=== PATIENT | female | born 1960 | race Caucasian/White ===

== ENCOUNTER → 2016-08-23 | Outpatient (CLI) | payer OTHER ==
[~2016-08-23] MED LIST: BENZ100C18 PO; DOXY100C PO; HYDR5SYP11 PO; LEVO1TAB33 PO; METH4PAK PO; OXYC1TAB3 PO; PRED50TA PO; ZTHM250 PO
--- NOTE | 2016-08-23 16:26 | MAMMOGRAPHY REPORT ---
BILATERAL DIGITAL SCREENING MAMMOGRAM TOMOSYNTHESIS WITH CAD: 08/23/2016 CLINICAL HISTORY: Routine screening. Patient has no complaints. TECHNIQUE: Breast tomosynthesis in addition to standard 2D mammography was performed. Current study was also evaluated with a Computer Aided Detection (CAD) system. COMPARISON: Comparison is made to exams dated: 08/21/2015 mammogram, 07/01/2012 mammogram, 1 mammogram, and 05/29/2010 mammogram - [facility]. BREAST COMPOSITION: There are scattered areas of fibroglandular density in both breasts. FINDINGS: No suspicious masses, calcifications, or areas of architectural distortion are noted in e ither breast. There has been no significant interval change compared to prior exams. IMPRESSION: ACR BI-RADS CATEGORY 1: NEGATIVE There is no mammographic evidence of malignancy. A 1 year screening mammogram is recommended. The p atient will receive written notification of the results. Approximately 10% of breast cancers are not detected with mammography. A negative mammographic repor t should not delay biopsy if a clinically suggestive mass is present. Jolanta Faith M.D. ah/:08/23/2016 14:46:55 Hand Engraver: Hortencia Urias RT(R)(M), [facility] letter sent: Normal 1/2 BI-RADS Code: ACR BI-RADS Category 1: Negative
== END | disposition home or self-care (01) ==
LOC: C.MAMM 13:19
PROVIDERS: ATTEND Family Medicine
DX: Z12.31 Encounter for screening mammogram for malignant neoplasm of breast (principal)

== ENCOUNTER → 2016-09-04 | Outpatient (CLI) | payer OTHER ==
--- NOTE | 2016-09-04 14:39 | ELECTROENCEPHALOGRAPH REPORT ---
DATE OF PROCEDURE: 09/04/2016. CLINICAL DIAGNOSIS: Hallucinations. New onset headache with some uncinate phenomena, question of temporal lobe seizures. EEG DIAGNOSIS: Essentially normal during wakefulness. DESCRIPTION OF TRACING: This EEG was done in the laboratory and is of good technical quality with few or no muscle movement artifacts. Simultaneous video analysis of patient movement and behavior was obtained. Photic stimulation was performed. Hyperventilation was not. Drowsiness and light sleep were not recorded. Under these conditions, there is evidence for normal appearing background rhythm in the alpha range of up to 9-10 Hz of maximum frequency and 40 microvolts of maximum amplitude. This is maximum posterior head regions and bilaterally symmetrical. Polymorphic mid frequency theta activity is seen over all head regions without clear focal or regional predominance. Anterior head region maximum bilaterally symmetrical low voltage fast activity in the beta range is present. Photic stimulation provokes a modest driving response without a photomyogenic or photoparoxysmal component. At no time during the waking tracing is there evidence for potentially epileptogenic activity in the form of polyspike or spike wave bursts, focal sharp waves or focal spikes. INTERPRETATION: This electroencephalogram is essentially normal during wakefulness without evidence for focal or generalized encephalopathy and without evidence for potentially epileptogenic activity. MTDD
== END | disposition home or self-care (01) ==
LOC: C.NEUR 08:13
PROVIDERS: ATTEND Nurse Practitioner Adult Health
DX: R44.2 Other hallucinations (principal); R51 Headache

== ENCOUNTER 2016-11-26 08:21 | Emergency (ER) | payer OTHER ==
[~2016-11-26] VITALS: Ht 144.8 cm; Wt 88.9 kg
[~2016-11-26 08:21] MED LIST changes: -BENZ100C18 PO; -DOXY100C PO; -HYDR5SYP11 PO; -LEVO1TAB33 PO; -METH4PAK PO; -PRED50TA PO; -ZTHM250 PO
[2016-11-26 08:22] VITALS: TEMP 36.8; Ht 144.8 cm; Wt 88.9 kg
[2016-11-26 08:35] VITALS: O2SAT 92
[2016-11-26] MEDS ORDERED: ALBUT/IPRATROP 3MG/0.5MG NEB 3 ML VIAL INH STA (08:37)
[2016-11-26] MEDS ORDERED: OPTIRAY 320 IV PRN (08:45)
[2016-11-26 08:54] LABS: BASO % 0.2 %; BASO ABS # 0.02 K/uL (0-0.2); COMPLETE YES; EOS % 8.3 %; HEMATOCRIT 39.1 % (37-47); IG% 0.3 %; LYMPH % 22.6 %; LYMPH ABS # 1.94 K/uL (1.2-3.4); MEAN CELL VOLUME 94.9 fL (80-100); MEAN CORPUSCULAR HEMOGLOBIN 30.3 pg (25-34); MEAN PLATELET VOLUME 9.3 fL (7.4-10.4); MONO % 6.6 %; PLATELET COUNT 242 K/uL (130-400); RED BLOOD COUNT 4.12 M/uL (4.2-5.4)
[2016-11-26] MEDS ORDERED: LEVO1TAB33 PO (09:05)
[2016-11-26 09:09] LABS: INR 0.9 (0.9-1.1); PARTIAL THROMBOPLASTIN RATIO 1.1; PROTHROMBIN TIME (PATIENT) 9.9 SECONDS (9.0-12.0)
[2016-11-26 09:17] LABS: ALT/SGPT 56 U/L (12-78); AST/SGOT 24 U/L (15-37); BLOOD UREA NITROGEN 11 mg/dl (7-18); BUN/CREATININE RATIO 12.7 (10-20); CARBON DIOXIDE 34 mmol/L (21-32); CHLORIDE 104 mmol/L (98-107); CREATININE 0.85 mg/dl (0.60-1.20); GLUCOSE 127 mg/dl (70-99); POTASSIUM 3.7 mmol/L (3.5-5.1); SODIUM 142 mmol/L (136-145)
[2016-11-26 09:28] LABS: ALB/GLOB RATIO 0.9 (0.9-2); ALKALINE PHOSPHATASE 152 U/L (45-117)
--- NOTE | 2016-11-26 10:01 | DIAGNOSTIC IMAGING REPORT ---
CT ANGIOGRAM OF THE CHEST CLINICAL HISTORY: Shortness of breath. Difficulty breathing. COMPARISON STUDY: Chest x-ray dated 12/08/2013 TECHNIQUE: Following the IV administration of 93 mL of Optiray-320, CT angiogram of the thorax was performed from the thoracic inlet to the lung bases utilizing the pulmonary embolus protocol. Images are reviewed in the axial, sagittal, and coronal planes. IV contrast was administered without complication. MIP imaging was performed. CT DOSE: 490.19 mGycm FINDINGS: There is a mildly enlarged subcarinal lymph node measuring 11 mm in short axis. Precarinal lymph nodes are the upper limits of normal in size. There is no pathologic axillary lymphadenopathy. There is no pathologic hilar lymphadenopathy. There was no evidence of thoracic aortic dilatation. There were no pulmonary artery filling defects to indicate acute pulmonary embolism. No pleural effusions are visualized. There are dependent atelectatic changes. There is a 13 mm peripheral airspace opacity within the lingula. There is a 5 mm solid right middle lobe perifissural nodule. There are extensive postsurgical changes present within the spine. IMPRESSION: 1. No CT evidence of acute pulmonary embolism 2. Minimally enlarged subcarinal lymph node 3. 13 mm peripheral airspace opacity within the lingula, likely atelectatic or inflammatory 4. 5 mm solid right middle lobe pulmonary nodule Please refer to below summary of Fleischner criteria recommendations for follow-up of incidental CT nodules (Pravin Dodd, Guidelines for management of small pulmonary nodules detected on CT scans: A statement from the Fleischner Society, Radiology 237: [phone].) SOLID NODULES Solitary nodule size: <6 mm * low risk patients: no follow-up needed * high risk patients: optional CT at 12 months Solitary nodule size: 6-8 mm * low risk patients: follow-up at 6-12 months, then consider further follow-up at 18-24 months * high risk patients: initial follow-up CT at 6-12 months and then at 18-24 months if no change Solitary nodule size: >8 mm * either low or high risk patients - consider follow-up CT at 3 months, and/or CT-PET, and/or biopsy Multiple nodules size: <6 mm * low risk patients: no routine follow-up * high risk patients: optional CT at 12 months Multiple nodules size: 6-8 mm * low risk patients: follow-up at 3-6 months, then consider further follow-up at 18-24 months * high risk patients: follow-up at 3-6 months, then at 18-24 months if no change Multiple nodules size: >8 mm * low risk patients: follow-up at 3-6 months, then consider further follow-up at 18-24 months * high risk patients: follow-up at 3-6 months, then at 18-24 months if no change Note: newly detected indeterminate nodule in persons 35 years of age or older. * low risk patients: minimal or absent history of smoking and/or other known risk factors * high risk patients: history of smoking or of other known risk factors (e.g. first degree relative with lung cancer, or exposure to asbestos, radon, uranium) * if a nodule up to 8 mm is partly solid or is ground glass further follow-up is required after 24 months to exclude possible slow growing adenocarcinoma (LORIN) SUBSOLID NODULES Solitary pure ground-glass nodule * nodule size <6 mm - no CT follow-up required * nodule size >=6 mm - follow-up CT at 6-12 months, then every 2 years until 5 years Solitary part-solid nodule * nodule size <6 mm - no CT follow-up required * nodule size >=6 mm - follow-up CT at 3-6 months. If unchanged, and solid component remains <6 mm, then annual follow-up for 5 years Multiple subsolid nodules * nodule size <6 mm - follow-up CT at 3-6 months, consider further follow-up at 2 and 4 years if stable * nodule size >=6 mm - follow-up CT at 3-6 months, subsequent management based on the most suspicious nodule(s) Electronically signed by: Deion Tate M.D. 11/26/2016 9:59 AM Dictated Date/Time: 11/26/2016 9:54 AM
[2016-11-26] MEDS ORDERED: METH4PAK PO (10:29)
[2016-11-26] MEDS ORDERED: HYDR5SYP11 PO (10:29)
[2016-11-26] MEDS ORDERED: DOXY100C PO (10:29)
--- NOTE | 2016-11-26 10:35 | EMERGENCY ROOM VISIT NOTE ---
History First contact with patient: 08:26 Chief Complaint: RESPIRATORY PROBLEMS Stated Complaint: DIFFICULTY BREATHING Nursing Triage Summary: Patient reports persistant cough and shortness of breath has seen pcp and been on antibiotics and steroids with minimal relief of symptoms. History of Present Illness The patient is a 56 year old female who presents to the Emergency Room with complaints of a persistent illness for over a month. The patient reports that she initially developed sinus congestion and runny nose. Within a few days, her cold had settled into her chest. With her initial PCP evaluation, she was ascribed a Z-Black and prednisone. The patient had no resolution of her symptoms. She was seen 1 week ago and prescribed Levaquin, again without any relief. The patient reports that the coughing is getting worse, and is also wheezing. She denies any prior history of lung disease, COPD or recent pneumonia. The patient reports that sometimes she can't stop coughing, and when she does catch her breath, she can hear wheezing sensation when she takes a deep breath. She has not had any fevers or chills or night sweats. She does have a history of tuberculosis. She denies history of asthma. She reports chest pressure and tightness. She denies any abdominal pain, diarrhea or urinary symptoms. Review of Systems HEENT: Denies dizziness, visual problems, hearing loss, tinnitus. Denies difficulty swallowing or oral lesions. PULMONARY: Denies cough, shortness of breath, sputum production or hemoptysis. CARDIOVASCULAR: Denies chest pain, palpitations, dyspnea on exertion, orthopnea or peripheral edema. GASTROINTESTINAL: Denies diarrhea, constipation, nausea, vomiting, or abdominal pain. GENITOURINARY: Denies dysuria, frequency, urgency or nocturia. NEUROLOGIC: Denies history of epilepsy, CVA, TIA or chronic headaches. MUSCULOSKELETAL: Denies history of joint tenderness/swelling. SKIN: Denies rashes or lesions. PSYCHIATRIC: Denies history of depression or mental illness. ENDOCRINE: Denies history of diabetes, thyroid disorders, abnormal hair growth or sexual dysfunction. Past Medical/Surgical History Surgical Problems: (1) Previous back surgery Family History FHx: cancer FHx: heart disease Hypertension Social History Smoking Status: Never Smoker Alcohol Use: none Marital Status: Housing Status: lives with family Occupation Status: unemployed Current/Historical Medications Scheduled Doxycycline Hyclate (Vibramycin), 100 MG PO BID Levofloxacin (Levaquin), 500 MG PO DAILY Methylprednisolone (Medrol Dosepak), 0 PO DAILY Scheduled PRN Hydrocodone W/ Homatropine (Hycodan 5/1.5MG 5 Ml), 5-10 ML PO Q4H PRN for Cough Allergies Coded Allergies: No Known Allergies (Unverified , 11/26/16) Physical Exam Vital Signs Date Time Temp Pulse Resp B/P Pulse Ox O2 Delivery O2 Flow Rate FiO2 11/26/16 08:58 78 11/26/16 08:35 93 Room Air 11/26/16 08:35 92 Room Air 11/26/16 08:35 93 Room Air 11/26/16 08:22 36.8 98 20 200/108 94 Room Air Medical Decision & Procedures ER Provider Diagnostic Interpretation: My interpretation of an ECG shows a sinus arrhythmia of [address] elevation or other conduction abnormalities noted. Chest CT angiography does not show any evidence for pulmonary emboli or consolidations. Radiologist report is as follows: CT ANGIOGRAM OF THE CHEST CLINICAL HISTORY: Shortness of breath. Difficulty breathing. COMPARISON STUDY: Chest x-ray dated 12/08/2013 TECHNIQUE: Following the IV administration of 93 mL of Optiray-320, CT angiogram of the thorax was performed from the thoracic inlet to the lung bases utilizing the pulmonary embolus protocol. Images are reviewed in the axial, sagittal, and coronal planes. IV contrast was administered without complication. MIP imaging was performed. CT DOSE: 490.19 mGycm FINDINGS: There is a mildly enlarged subcarinal lymph node measuring 11 mm in short axis. Precarinal lymph nodes are the upper limits of normal in size. There is no pathologic axillary lymphadenopathy. There is no pathologic hilar lymphadenopathy. There was no evidence of thoracic aortic dilatation. There were no pulmonary artery filling defects to indicate acute pulmonary embolism. No pleural effusions are visualized. There are dependent atelectatic changes. There is a 13 mm peripheral airspace opacity within the lingula. There is a 5 mm solid right middle lobe perifissural nodule. There are extensive postsurgical changes present within the spine. IMPRESSION: 1. No CT evidence of acute pulmonary embolism 2. Minimally enlarged subcarinal lymph node 3. 13 mm peripheral airspace opacity within the lingula, likely atelectatic or inflammatory 4. 5 mm solid right middle lobe pulmonary nodule Laboratory Results 11/26/16 08:42 Red Blood Count 4.12, Mean Corpuscular Volume 94.9, Mean Corpuscular Hemoglobin 30.3, Mean Corpuscular Hemoglobin Concent 32.0, Mean Platelet Volume 9.3, Neutrophils (%) (Auto) 62.0, Lymphocytes (%) (Auto) 22.6, Monocytes (%) (Auto) 6.6, Eosinophils (%) (Auto) 8.3, Basophils (%) (Auto) 0.2, Neutrophils # (Auto) 5.33, Lymphocytes # (Auto) 1.94, Monocytes # (Auto) 0.57, Eosinophils # (Auto) 0.71, Basophils # (Auto) 0.02 11/26/16 08:42 Test 11/26/16 08:37 11/26/16 08:42 11/26/16 09:10 Creatine Kinase MB Ratio (0-3.0) White Blood Count 8.60 K/uL (4.8-10.8) Red Blood Count 4.12 M/uL (4.2-5.4) Hemoglobin 12.5 g/dL (12.0-16.0) Hematocrit 39.1 % (37-47) Mean Corpuscular Volume 94.9 fL (80-100) Mean Corpuscular Hemoglobin 30.3 pg (25-34) Mean Corpuscular Hemoglobin Concent 32.0 g/dl (32-36) Platelet Count 242 K/uL (130-400) Mean Platelet Volume 9.3 fL (7.4-10.4) Neutrophils (%) (Auto) 62.0 % Lymphocytes (%) (Auto) 22.6 % Monocytes (%) (Auto) 6.6 % Eosinophils (%) (Auto) 8.3 % Basophils (%) (Auto) 0.2 % Neutrophils # (Auto) 5.33 K/uL (1.4-6.5) Lymphocytes # (Auto) 1.94 K/uL (1.2-3.4) Monocytes # (Auto) 0.57 K/uL (0.11-0.59) Eosinophils # (Auto) 0.71 K/uL (0-0.5) Basophils # (Auto) 0.02 K/uL (0-0.2) RDW Standard Deviation 49.7 fL (36.4-46.3) RDW Coefficient of Variation 14.5 % (11.5-14.5) Immature Granulocyte % (Auto) 0.3 % Immature Granulocyte # (Auto) 0.03 K/uL (0.00-0.02) Prothrombin Time 9.9 SECONDS (9.0-12.0) Prothromb Time International Ratio 0.9 (0.9-1.1) Activated Partial Thromboplast Time 29.2 SECONDS (21.0-31.0) Partial Thromboplastin Ratio 1.1 Anion Gap 4.0 mmol/L (3-11) Est Creatinine Clear Calc Drug Dose 66.9 ml/min Estimated GFR () 87.5 Estimated GFR (Non- 75.5 BUN/Creatinine Ratio 12.7 (10-20) Calcium Level 9.0 mg/dl (8.5-10.1) Total Bilirubin 0.5 mg/dl (0.2-1) Aspartate Amino Transf (AST/SGOT) 24 U/L (15-37) Alanine Aminotransferase (ALT/SGPT) 56 U/L (12-78) Alkaline Phosphatase 152 U/L (45-117) Creatine Kinase MB 2.1 ng/ml (0.5-3.6) Troponin I < 0.015 ng/ml (0-0.045) Pro-B-Type Natriuretic Peptide 46 pg/ml (0-900) Total Protein 7.5 gm/dl (6.4-8.2) Albumin 3.6 gm/dl (3.4-5.0) Globulin 3.9 gm/dl (2.5-4.0) Albumin/Globulin Ratio 0.9 (0.9-2) The above labs were reviewed. Troponin and BNP are normal. Otherwise remaining labs are grossly normal. Medications Administered Medications (Trade) Dose Ordered Sig/Mars Route Start Time Stop Time Status Last Admin Dose Admin Albuterol/ Ipratropium (Duoneb) 3 ml NOW STAT INH 11/26/16 08:37 11/26/16 08:41 DC 11/26/16 09:09 3 ML ED Course Patient history and physical exam were performed. Nurse's notes were reviewed. Vital signs were reviewed and normal. O2 saturation was 96% on room air. The patient is not tachycardic. IV access was established, and labs were drawn. She was administered a unit dose DuoNeb treatment with good relief of her cough. Review of labs showed no significant abnormalities. Her troponin and BNP are normal. ECG was normal. Chest CT angiography does not show any evidence for pulmonary emboli or consolidations. Distal findings are summarized in the radiologist report. The patient did report feeling better after receiving her DuoNeb treatment. The case was also discussed with Dr. Chinchilla, ED attending physician, who agrees with workup and plan of care. The patient will be discharged with prescriptions for doxycycline, Medrol Dosepak and Hycodan cough syrup. The patient reports that she still has plenty of albuterol at home. She was instructed to follow-up with her PCP for further reevaluation and management, likely requiring pulmonology referral. She was instructed to return to the emergency department for any progressively worsening symptoms. The patient was happy with plan of care, and voiced understanding of all discharge instructions. Medical Decision The patient presents to the emergency department with complaint of persistent respiratory symptoms. She has are been treated with azithromycin and Levaquin without any relief of symptoms. She has also been on steroids and inhalers without relief. Her workup today is not suggestive of pneumonia or pulmonary emboli. Her ECG and troponin are normal, therefore I do not suspect myocardial infarction. Remaining labs are otherwise normal without leukocytosis or fever. At this point, I do feel that the patient is stable for outpatient management. [facility] Drug Monitoring Program Search Results: patient reviewed within database, no issues identified Impression Primary Impression: Acute bronchitis Departure Information Prescriptions Hydrocodone W/ Homatropine (HYCODAN 5/1.5MG 5 ML) 1 Syp Syp 5-10 ML PO Q4H Y for Cough, #200 ML Prov: Brady Monteiro PA 11/26/16 Methylprednisolone (MEDROL DOSEPAK) 4 Mg Black 0 PO DAILY, #1 PKT Prov: Brady Monteiro PA 11/26/16 Doxycycline Hyclate (VIBRAMYCIN) 100 Mg Cap 100 MG PO BID for 10 Days, #20 CAP Prov: Brady Monteiro PA 11/26/16 Referrals Bambi Garcia M.D. (MEDICAL) (PCP) Patient Instructions My [facility] Problem Qualifiers Primary Impression: Acute bronchitis Bronchitis organism: unspecified organism Qualified Codes: J20.9 - Acute bronchitis, unspecified
[2016-11-26 11:07] VITALS: BP 159/86; PULSE 80; O2SAT 93
== END 2016-11-26 11:09 | disposition home or self-care (01) ==
LOC: C.EDB 08:22
DX: J20.9 Acute bronchitis, unspecified (principal); Z82.49 Family history of ischemic heart disease and other diseases of the circulatory system

== ENCOUNTER 2016-12-14 07:47 | Emergency (ER) | payer OTHER ==
[~2016-12-14] VITALS: Ht 144.8 cm; Wt 89.4 kg
[~2016-12-14 07:47] MED LIST changes: +LEVO1TAB33 PO; -OXYC1TAB3 PO
[2016-12-14 07:51] VITALS: TEMP 36.7; Ht 144.8 cm; Wt 89.4 kg
[2016-12-14] MEDS ORDERED: METHYLPREDNISOLONE 125 MG VIAL IV STA (08:05)
[2016-12-14] MEDS ORDERED: ALBUTEROL 0.083% NEBU SOLN 3 ML VIAL INH STA (08:05)
--- NOTE | 2016-12-14 08:30 | DIAGNOSTIC IMAGING REPORT ---
CHEST 2 VIEWS ROUTINE HISTORY: cough and SOB COMPARISON: Chest CTA 11/26/2016. FINDINGS: The lungs are clear. No pleural effusions. No pneumothorax. The heart is mildly enlarged. This is not significantly changed. Posterior fusion within the lower thoracic and lumbar spine. IMPRESSION: No significant change compared to the prior study. No acute process. Electronically signed by: Esdras Pal M.D. 12/14/2016 8:28 AM Dictated Date/Time: 12/14/2016 8:27 AM
[2016-12-14 08:58] LABS: BASO % 0.3 %; BASO ABS # 0.03 K/uL (0-0.2); COMPLETE YES; EOS % 3.7 %; HEMATOCRIT 39.3 % (37-47); IG% 0.2 %; LYMPH % 26.3 %; LYMPH ABS # 2.39 K/uL (1.2-3.4); MEAN CELL VOLUME 94.7 fL (80-100); MEAN CORPUSCULAR HEMOGLOBIN 30.4 pg (25-34); MEAN CORPUSCULAR HGB CONC 32.1 g/dl (32-36); MEAN PLATELET VOLUME 9.7 fL (7.4-10.4); MONO % 5.8 %; NEUT % 63.7 %; PLATELET COUNT 203 K/uL (130-400); RED BLOOD COUNT 4.15 M/uL (4.2-5.4); WHITE BLOOD COUNT 9.09 K/uL (4.8-10.8)
[2016-12-14] MEDS ORDERED: ALBUT/IPRATROP 3MG/0.5MG NEB 3 ML VIAL INH STA (09:00)
[2016-12-14 09:13] LABS: CALCIUM 8.9 mg/dl (8.5-10.1)
[2016-12-14 09:14] LABS: BLOOD UREA NITROGEN 14 mg/dl (7-18); BUN/CREATININE RATIO 17.1 (10-20); CARBON DIOXIDE 33 mmol/L (21-32); CHLORIDE 106 mmol/L (98-107); CREATININE 0.79 mg/dl (0.60-1.20); GLUCOSE 112 mg/dl (70-99); POTASSIUM 3.5 mmol/L (3.5-5.1); SODIUM 143 mmol/L (136-145)
[2016-12-14] MEDS ORDERED: AZITHROMYCIN 250 MG TAB PO STA (11:40)
[2016-12-14] MEDS ORDERED: AZIT-57 PO (11:42)
[2016-12-14] MEDS ORDERED: PRED50TA PO (11:42)
[2016-12-14] MEDS ORDERED: BENZ100C18 PO (11:42)
[2016-12-14] MEDS ORDERED: BENZONATATE 100MG CAP PO ONE (12:15)
[2016-12-14 12:20] VITALS: BP 165/78; PULSE 78; O2SAT 95
--- NOTE | 2016-12-14 13:17 | EMERGENCY ROOM VISIT NOTE ---
History Report prepared by Yaniibdee: Jhonny Tran Under the Supervision of: Dr. José Luis Mayorga D.O. First contact with patient: 07:54 Chief Complaint: COUGH Stated Complaint: DIFFICULTY BREATHING History of Present Illness The patient is a 56 year old female who presents to the Emergency Room with complaints of persistent coughing for the past two days. The patient has also been short of breath and has a sore throat. This morning she vomited yellow fluid after a coughing spell. She is feeling generally weak. She does not have any sick contacts. The patient denies any underlying lung disease, including asthma or COPD. She is not a smoker. She does not have any past history of heart disease. Patient denies headache, rhinorrhea, change in vision, fevers, chest pain, shortness of breath, nausea, vomiting, diarrhea, pain with urination , and melena. Source of History: patient Onset: two days ago Position: other (respiratory) Quality: other (cough) Timing: other (persistent) Associated Symptoms: + SOB, + sorethroat, + vomiting, No chest pain, No diarrhea, No fevers, No headache, No melena, No nausea, No urinary symptoms Review of Systems See HPI for pertinent positives & negatives. A total of 10 systems reviewed and were otherwise negative. Past Medical & Surgical Medical Problems: (1) HTN (hypertension) Surgical Problems: (1) Previous back surgery Family History FHx: cancer FHx: heart disease Hypertension Social History Smoking Status: Never Smoker Alcohol Use: none Marital Status: Housing Status: lives with family Occupation Status: unemployed Current/Historical Medications Scheduled Azithromycin (Azithromycin), 250 MG PO DAILY Benzonatate (Tessalon Perles), 100 MG PO TID Prednisone (Prednisone), 50 MG PO DAILY Allergies Coded Allergies: No Known Allergies (Unverified , 12/14/16) Physical Exam Vital Signs Date Time Temp Pulse Resp B/P Pulse Ox O2 Delivery O2 Flow Rate FiO2 12/14/16 12:20 78 18 165/78 95 12/14/16 09:24 86 20 171/98 92 Room Air 12/14/16 07:51 36.7 92 20 191/87 94 Room Air Physical Exam GENERAL: Sitting up in bed, disheveled, persistent dry cough noted. EYE EXAM: normal conjunctiva. OROPHARYNX: no exudate, no erythema, lips, buccal mucosa, and tongue normal and mucous membranes are moist NECK: supple, no nuchal rigidity, no adenopathy, non-tender, no JVD. LUNGS: Diffuse wheezing bilaterally. Normal chest wall mechanics HEART: no murmurs, S1 normal and S2 normal ABDOMEN: abdomen soft, non-tender, normo-active bowel sounds, no masses, no rebound or guarding. BACK: Back is symmetrical on inspection and there is no deformity, no midline tenderness, no CVA tenderness. SKIN: no rashes and no bruising UPPER EXTREMITIES: upper extremities are grossly normal. LOWER EXTREMITIES: Faint pedal edema. Calves are equal bilaterally. NEURO EXAM: Normal sensorium, cranial nerves II-XII grossly intact, normal speech, no gross weakness of arms, no gross weakness of legs. Gross sensation intact. Medical Decision & Procedures ER Provider Diagnostic Interpretation: Radiology results as stated below per my review and the radiologist's interpretation: CHEST 2 VIEWS ROUTINE HISTORY: cough and SOB COMPARISON: Chest CTA 11/26/2016. FINDINGS: The lungs are clear. No pleural effusions. No pneumothorax. The heart is mildly enlarged. This is not significantly changed. Posterior fusion within the lower thoracic and lumbar spine. IMPRESSION: No significant change compared to the prior study. No acute process. Electronically signed by: Esdras Pal M.D. 12/14/2016 8:28 AM Dictated Date/Time: 12/14/2016 8:27 AM Laboratory Results 12/14/16 08:48 Red Blood Count 4.15, Mean Corpuscular Volume 94.7, Mean Corpuscular Hemoglobin 30.4, Mean Corpuscular Hemoglobin Concent 32.1, Mean Platelet Volume 9.7, Neutrophils (%) (Auto) 63.7, Lymphocytes (%) (Auto) 26.3, Monocytes (%) (Auto) 5.8, Eosinophils (%) (Auto) 3.7, Basophils (%) (Auto) 0.3, Neutrophils # (Auto) 5.78, Lymphocytes # (Auto) 2.39, Monocytes # (Auto) 0.53, Eosinophils # (Auto) 0.34, Basophils # (Auto) 0.03 12/14/16 08:48 Test 12/14/16 00:00 12/14/16 08:48 Influenza Type A Antigen Neg for Influ A (NEG) Influenza Type B Antigen Neg for Influ B (NEG) White Blood Count 9.09 K/uL (4.8-10.8) Red Blood Count 4.15 M/uL (4.2-5.4) Hemoglobin 12.6 g/dL (12.0-16.0) Hematocrit 39.3 % (37-47) Mean Corpuscular Volume 94.7 fL (80-100) Mean Corpuscular Hemoglobin 30.4 pg (25-34) Mean Corpuscular Hemoglobin Concent 32.1 g/dl (32-36) Platelet Count 203 K/uL (130-400) Mean Platelet Volume 9.7 fL (7.4-10.4) Neutrophils (%) (Auto) 63.7 % Lymphocytes (%) (Auto) 26.3 % Monocytes (%) (Auto) 5.8 % Eosinophils (%) (Auto) 3.7 % Basophils (%) (Auto) 0.3 % Neutrophils # (Auto) 5.78 K/uL (1.4-6.5) Lymphocytes # (Auto) 2.39 K/uL (1.2-3.4) Monocytes # (Auto) 0.53 K/uL (0.11-0.59) Eosinophils # (Auto) 0.34 K/uL (0-0.5) Basophils # (Auto) 0.03 K/uL (0-0.2) RDW Standard Deviation 49.7 fL (36.4-46.3) RDW Coefficient of Variation 14.4 % (11.5-14.5) Immature Granulocyte % (Auto) 0.2 % Immature Granulocyte # (Auto) 0.02 K/uL (0.00-0.02) Anion Gap 4.0 mmol/L (3-11) Est Creatinine Clear Calc Drug Dose 72.2 ml/min Estimated GFR () 95.6 Estimated GFR (Non- 82.5 BUN/Creatinine Ratio 17.1 (10-20) Calcium Level 8.9 mg/dl (8.5-10.1) Troponin I < 0.015 ng/ml (0-0.045) Pro-B-Type Natriuretic Peptide 24 pg/ml (0-900) Laboratory results per my review. Medications Administered Medications (Trade) Dose Ordered Sig/Mars Route Start Time Stop Time Status Last Admin Dose Admin Albuterol Sulfate (Ventolin 0.083% 2.5MG/3ML Neb) 2.5 mg NOW STAT INH 12/14/16 08:05 12/14/16 08:08 DC 12/14/16 08:53 2.5 MG Methylprednisolone Sodium Succinate (Solu-Medrol IV) 125 mg NOW STAT IV 12/14/16 08:05 12/14/16 08:08 DC 12/14/16 08:53 125 MG Albuterol/ Ipratropium (Duoneb) 3 ml NOW STAT INH 12/14/16 09:00 12/14/16 09:01 DC 12/14/16 09:22 3 ML Azithromycin (Zithromax Tab) 500 mg NOW STAT PO 12/14/16 11:40 12/14/16 11:41 DC 12/14/16 12:13 500 MG Benzonatate (Tessalon Perles Cap) 100 mg NOW ONCE PO 12/14/16 12:15 12/14/16 12:16 DC 12/14/16 12:15 100 MG ECG Indication: SOB/dyspnea Rate (beats per minute): 99 Rhythm: sinus rhythm Findings: no ectopy, other (no ectopy) Comparison ECG Date: 26 November 2016 ED Course ED COURSE: Vital signs were reviewed and showed hypertension. The patients medical record was reviewed The above diagnostic studies were performed and reviewed. ED treatments and interventions as stated above. 0800: The patient was evaluated in room B12b. A complete history and physical examination was performed. 0805: Solu-Medrol 125 mg IV, Albuterol Sulfate 2.5 mg INH. 0810: Patient's past records show that she had the same symptoms on the . 0850: The patient feels a bit better. Wheezing has decreased. 0900: DuoNeb 3 ml INH. 1030: The patient is feeling better. There is no longer wheezing on exam. 1140: Zithromax 500 mg PO. 1145: Upon reevaluation, the patient is feeing better..I discussed my findings with the patient and she understands and agrees with the treatment plan. Based on the patients age, coexisting illnesses, exam and lab findings the decision to treat as an outpatient was made. The patient remained stable while under my care. The patient appeared well at the time of discharge. Medical Decision Differential diagnoses includes but is not limited to pneumonia, bronchitis, COPD/Asthma exacerbation, pneumothorax, pulmonary embolism, congestive heart failure, acute coronary syndrome Patient is a 56-year-old female who presents the ER for a cough associated with a sore throat. Patient was here about about a month ago with similar symptoms which resolved with the treatments and steroids. She does have a history of asthma and has albuterol treatments at home. Chest x-ray was unremarkable. Vitals were normal. CBC along with BMP, troponin and BNP were normal. Influenza A and B were negative. Patient was given 2 neb treatments along with steroids and had complete resolution of her wheezing. She did feel better. She was discharged with azithromycin, steroids and Tessalon Perles to follow-up with her primary care doctor as I believe this to be primarily an upper respiratory infection. Discussed with Pt concerning signs and symptoms to watch out for. Pt was instructed to follow up with their PCP and discussed with the patient their option to return to the ED at anytime for persistent or worsening symptoms. The appropriate anticipatory guidance and out-patient management, including indications for return to the emergency department, were explained at length to the patient and understood. Impression Primary Impression: Acute bronchitis Scribe Attestation The scribe's documentation has been prepared under my direction and personally reviewed by me in its entirety. I confirm that the note above accurately reflects all work, treatment, procedures, and medical decision making performed by me. Departure Information Dispostion Home / Self-Care Prescriptions Azithromycin (Azithromycin) 250 Mg Tab 250 MG PO DAILY for 4 Days Prov: José Luis Mayorga, DO 12/14/16 Benzonatate (TESSALON PERLES) 100 Mg Cap 100 MG PO TID, #30 CAP Prov: José Luis Mayorga, DO 12/14/16 Prednisone (PREDNISONE) 50 Mg Tab 50 MG PO DAILY for 4 Days, TAB Prov: José Luis Mayorga, DO 12/14/16 Referrals Bambi Garcia M.D. (MEDICAL) (PCP) Forms HOME CARE DOCUMENTATION FORM, IMPORTANT VISIT INFORMATION Patient Instructions ED Bronchitis Abx Tx, My [facility] Additional Instructions Please follow up with your primary care doctor with in the next 24 hours. Any worsening of your symptoms, please return to the ED immediately. This includes fevers greater than 100.4, chest pain, passing out, worsening shortness breath or any other concerning signs or symptoms from your standpoint. Please take antibiotics as prescribed. Please take the steroids and coughing medication. Problem Qualifiers Primary Impression: Acute bronchitis Bronchitis organism: unspecified organism Qualified Codes: J20.9 - Acute bronchitis, unspecified
--- NOTE | 2016-12-16 07:19 | EDITING REQUIRED CODING QUERY ---
CODING QUERY Dr. Mayorga, To promote full compliance with coding requirements relating to patient care, provider participation is requested in all cases of service now developer uncertainty. Please assist us with the question(s) below: Coding Question(s): History of Present Illness states patient does not have asthma. Medical Decision section says patient has a history of asthma. Please clarify below: ( x) Patient has a history of asthma ( ) Patient does not have a history of asthma ( ) Other Please Explain: Physician's Response(s): Thank you Tristan Pennington Principal Diagnosis: "_that condition established after study, to be chiefly responsible for occasioning the admission of the patient to the hospital for care." Co-Existing Principal Diagnosis: "_when two or more diagnoses equally meet the criteria for principal diagnosis as determined by the circumstances of admission, diagnostic work up, and/or therapy provided, and the Alphabetic Index, Tabular List, or another coding guideline does not provide sequencing direction, any one of the diagnoses may be sequenced first." "When the physician has documented what appears to be a current diagnosis in the body of the record, but has not included the diagnosis in the final diagnostic statement, the physician should be asked whether the diagnosis should be added." (Source Coding Clinic 2 QTR90. p3-4)
== END 2016-12-14 12:21 | disposition home or self-care (01) ==
LOC: C.EDB 07:48
DX: J45.909 Unspecified asthma, uncomplicated (principal); I10 Essential (primary) hypertension; Z98.890 Other specified postprocedural states; Z82.49 Family history of ischemic heart disease and other diseases of the circulatory system; Z79.52 Long term (current) use of systemic steroids

== ENCOUNTER → 2017-08-27 | Outpatient (CLI) | payer OTHER ==
[~2017-08-27] MED LIST changes: +AZIT-57 PO; -LEVO1TAB33 PO; +OSEL75CA12 PO; +PRED20TA PO
--- NOTE | 2017-08-27 15:41 | MAMMOGRAPHY REPORT ---
BILATERAL DIGITAL SCREENING MAMMOGRAM TOMOSYNTHESIS WITH CAD: 08/27/2017 CLINICAL HISTORY: Routine screening. TECHNIQUE: Breast tomosynthesis in addition to standard 2D mammography was performed. Current study was also evaluated with a Computer Aided Detection (CAD) system. COMPARISON: Comparison is made to exams dated: 08/23/2016 mammogram, 07/01/2012 mammogram, 08/21/2015 mammogram, 05/30/2011 mammogram, 05/29/2010 mammogram, and 01/02/2005 mammogram - [facility]. BREAST COMPOSITION: There are scattered areas of fibroglandular density in both breasts. FINDINGS: The parenchymal pattern is unchanged. No developing mass, architectural distortion or clus ter of suspicious microcalcifications is seen in either breast. IMPRESSION: ACR BI-RADS CATEGORY 2: BENIGN There is no mammographic evidence of malignancy. A 1 year screening mammogram is recommended. The pa tient will receive written notification of the results. Approximately 10% of breast cancers are not detected with mammography. A negative mammographic report should not delay biopsy if a clinically suggestive mass is present. Sheri Hinson M.D. ay/:08/27/2017 14:23:15 Data Technical Lead: Chika [employer]AN[employer](Bhanu)(Nicolasa), [facility] letter sent: Normal 1/2 BI-RADS Code: ACR BI-RADS Category 2: Benign
== END | disposition home or self-care (01) ==
LOC: C.MAMM 13:17
PROVIDERS: ATTEND Family Medicine
DX: Z12.31 Encounter for screening mammogram for malignant neoplasm of breast (principal)

== ENCOUNTER 2017-08-28 09:32 | Emergency (ER) | payer OTHER ==
[~2017-08-28] VITALS: Ht 144.8 cm; Wt 87.3 kg
[~2017-08-28 09:32] MED LIST changes: -OSEL75CA12 PO; -PRED20TA PO
[2017-08-28 09:37] VITALS: TEMP 38.1; Ht 144.8 cm; Wt 87.3 kg
[2017-08-28] MEDS ORDERED: SODIUM CHLORIDE 0.9% 500ML 500 ML IV STA (09:49)
[2017-08-28] MEDS ORDERED: METHYLPREDNISOLONE 125 MG VIAL IV STA (09:49)
[2017-08-28] MEDS ORDERED: ALBUT/IPRATROP 3MG/0.5MG NEB 3 ML VIAL INH STA (09:49)
--- NOTE | 2017-08-28 10:00 | EMERGENCY ROOM VISIT NOTE ---
History Report prepared by Yves: Gomez Malave Under the Supervision of: Dr. Kay Caballero M.D. First contact with patient: 09:42 Chief Complaint: FLU LIKE SX Stated Complaint: THROWING UP AND CANT BREATHE COUGH History of Present Illness The patient is a 57 year old female who presents to the Emergency Room with complaints of worsening flu like symptoms for the past three days. The patient states that she has shortness of breath, vomiting, fevers, chills, headache, and a cough. The patient states that the vomiting usually follows the cough. She reports that she was seen at her PCP, and they gave her 20mg of prednisone three days ago, though they did not test her for the flu, and she has not had a chest x-ray. The patient states that she has a history of tuberculosis in 1995, and she is worried about this. She has no history of diabetes or asthma, and she does not smoke. The patient does not take any blood pressure medications. She denies any sick contacts at home, and she does not have any chest pain. She ate oatmeal and drank orange juice this morning. The patient reports that she was given an inhaler, and she has been using it a lot. Source of History: patient Onset: three days ago Position: other (global) Quality: other (flu like symptoms) Timing: worsening Associated Symptoms: + fevers, + chills, + headache, + cough, + SOB, + vomiting, No chest pain Review of Systems See HPI for pertinent positives & negatives. A total of 10 systems reviewed and were otherwise negative. Past Medical & Surgical Medical Problems: (1) HTN (hypertension) Surgical Problems: (1) Previous back surgery Family History FHx: cancer FHx: heart disease Hypertension Social History Smoking Status: Never Smoker Alcohol Use: none Marital Status: Housing Status: lives with family Occupation Status: unemployed Current/Historical Medications Scheduled Oseltamivir (Tamiflu), 75 MG PO BID Prednisone (Prednisone), 40 MG PO DAILY Allergies Coded Allergies: No Known Allergies (Unverified , 08/28/17) Physical Exam Vital Signs Date Time Temp Pulse Resp B/P (MAP) Pulse Ox O2 Delivery O2 Flow Rate FiO2 08/28/17 13:33 119 20 191/95 93 08/28/17 11:34 123 20 140/120 98 Room Air 08/28/17 09:54 115 08/28/17 09:50 107 16 171/101 08/28/17 09:37 38.1 128 24 205/102 94 Room Air Physical Exam Vital signs reviewed. General: Well-appearing female, in no significant distress. HEENT: No scleral icterus, PERRLA, neck supple. Atraumatic. Posterior oropharynx is clear. Cardiovascular: Regular rate and rhythm, no extra sounds. Pulmonary: Dry cough. Clear to auscultation bilaterally, normal work of breathing. Abdomen: Soft, nontender, nondistended, positive bowel sounds. Musculoskeletal: Atraumatic, no peripheral edema. Neurologic: Patient awake alert and oriented x 3 Skin: Warm, dry, no rash Medical Decision & Procedures ER Provider Diagnostic Interpretation: Radiology results as stated below per my review and radiologist interpretation: CHEST ONE VIEW PORTABLE CLINICAL HISTORY: cough, wheezing dyspnea COMPARISON STUDY: 12/14/2016 FINDINGS: Lungs are clear. Mild stable cardiomegaly. Stable postoperative changes thoracolumbar spine. IMPRESSION: No acute process. The above report was generated using voice recognition software. It may contain grammatical, syntax or spelling errors. Electronically signed by: Domo Mena M.D. 08/28/2017 11:06 AM Dictated Date/Time: 08/28/2017 11:05 AM Laboratory Results 08/28/17 10:10 Red Blood Count 4.06, Mean Corpuscular Volume 93.8, Mean Corpuscular Hemoglobin 31.0, Mean Corpuscular Hemoglobin Concent 33.1, Mean Platelet Volume 9.6, Neutrophils (%) (Auto) 85.2, Lymphocytes (%) (Auto) 7.7, Monocytes (%) (Auto) 5.7, Eosinophils (%) (Auto) 0.8, Basophils (%) (Auto) 0.2, Neutrophils # (Auto) 7.28, Lymphocytes # (Auto) 0.66, Monocytes # (Auto) 0.49, Eosinophils # (Auto) 0.07, Basophils # (Auto) 0.02 08/28/17 10:10 Test 08/28/17 10:10 08/28/17 10:21 08/28/17 10:40 White Blood Count 8.55 K/uL (4.8-10.8) Red Blood Count 4.06 M/uL (4.2-5.4) Hemoglobin 12.6 g/dL (12.0-16.0) Hematocrit 38.1 % (37-47) Mean Corpuscular Volume 93.8 fL (80-100) Mean Corpuscular Hemoglobin 31.0 pg (25-34) Mean Corpuscular Hemoglobin Concent 33.1 g/dl (32-36) Platelet Count 215 K/uL (130-400) Mean Platelet Volume 9.6 fL (7.4-10.4) Neutrophils (%) (Auto) 85.2 % Lymphocytes (%) (Auto) 7.7 % Monocytes (%) (Auto) 5.7 % Eosinophils (%) (Auto) 0.8 % Basophils (%) (Auto) 0.2 % Neutrophils # (Auto) 7.28 K/uL (1.4-6.5) Lymphocytes # (Auto) 0.66 K/uL (1.2-3.4) Monocytes # (Auto) 0.49 K/uL (0.11-0.59) Eosinophils # (Auto) 0.07 K/uL (0-0.5) Basophils # (Auto) 0.02 K/uL (0-0.2) RDW Standard Deviation 48.7 fL (36.4-46.3) RDW Coefficient of Variation 14.4 % (11.5-14.5) Immature Granulocyte % (Auto) 0.4 % Immature Granulocyte # (Auto) 0.03 K/uL (0.00-0.02) Anion Gap 5.0 mmol/L (3-11) Est Creatinine Clear Calc Drug Dose 70.3 ml/min Estimated GFR () 95.0 Estimated GFR (Non- 81.9 BUN/Creatinine Ratio 19.3 (10-20) Calcium Level 8.6 mg/dl (8.5-10.1) Total Bilirubin 0.4 mg/dl (0.2-1) Direct Bilirubin < 0.1 mg/dl (0-0.2) Aspartate Amino Transf (AST/SGOT) 32 U/L (15-37) Alanine Aminotransferase (ALT/SGPT) 62 U/L (12-78) Alkaline Phosphatase 134 U/L (45-117) Total Protein 7.6 gm/dl (6.4-8.2) Albumin 3.6 gm/dl (3.4-5.0) Bedside Troponin I < 0.030 ng/ml (0-0.045) Influenza Type A Antigen POS for Influ A (NEG) Influenza Type B Antigen Neg for Influ B (NEG) Laboratory results per my review. Medications Administered Medications (Trade) Dose Ordered Sig/Mars Route Start Time Stop Time Status Last Admin Dose Admin Albuterol/ Ipratropium (Duoneb) 3 ml NOW STAT INH 08/28/17 09:49 08/28/17 09:54 DC 08/28/17 10:31 3 ML Methylprednisolone Sodium Succinate (Solu-Medrol IV) 125 mg NOW STAT IV 08/28/17 09:49 08/28/17 09:54 DC 08/28/17 10:31 125 MG Sodium Chloride 500 ml @ 999 mls/hr Q31M STAT IV 08/28/17 09:49 08/28/17 10:19 DC 08/28/17 10:31 999 MLS/HR Acetaminophen (Tylenol Tab) 650 mg NOW STAT PO 08/28/17 11:42 08/28/17 11:43 DC 08/28/17 11:56 650 MG ECG Indication: SOB/dyspnea, vomiting Rate (beats per minute): 109 Rhythm: sinus tachycardia Findings: no acute ischemic change, no ectopy Change: Patient's electrocardiogram interpreted by me. ED Course 0942: Past medical records reviewed. The patient was evaluated in room C4. A complete history and physical examination was performed. 0949: Sodium Chloride 500 ml @ 999 mls/hr IV, Solu-Medrol 125mg IV, DuoNeb 3ml INH 1142: Tylenol Tab 650mg PO 1340: Upon reevaluation, the patient appeared to have improvement of her symptoms. I discussed findings with her. She verbalized agreement of the treatment plan. She was discharged home. Medical Decision Differential diagnosis: Etiologies such as infections, reactive airway disease, pneumonia, pneumothorax , COPD, CHF, cardiac ischemia, pulmonary embolism, musculoskeletal, gastrointestinal, as well as others were entertained. This patient was evaluated and appeared to be in no significant distress. IV access was obtained and laboratory work was drawn. The patient was placed on the diagnostic cardiac sonographer and found to be in a sinus sinus rhythm. EKG reveals no evidence of acute ischemic change or ectopy. Patient is found to be tachycardic however she states she has been using her albuterol inhaler frequently. She was wheezing on arrival and was given a DuoNeb treatment. She is found to be febrile and was given Tylenol 650 mg by mouth. Patient did receive Solu-Medrol 125 mg IV. Chest x-ray is largely clear. Patient has tested positive for influenza A. She was given a prescription for Tamiflu and will continue the steroids and albuterol as prescribed. Patient was advised on symptomatic management and will follow-up with her PCP for reevaluation next week. She will return to the ER for worsening of symptoms or any medical concerns. Medication Reconcilliation Current Medication List: was personally reviewed by me Blood Pressure Screening Patient's blood pressure: Elevated blood pressure Blood pressure disposition: Referred to PCP Impression Primary Impression: Influenza A Scribe Attestation The scribe's documentation has been prepared under my direction and personally reviewed by me in its entirety. I confirm that the note above accurately reflects all work, treatment, procedures, and medical decision making performed by me. Departure Information Dispostion Home / Self-Care Prescriptions Oseltamivir (Tamiflu) 75 Mg Cap 75 MG PO BID, #10 CAP Prov: Kay Caballero M.D. 08/28/17 Referrals Bambi Garcia M.D. (MEDICAL) (PCP) Forms HOME CARE DOCUMENTATION FORM, IMPORTANT VISIT INFORMATION Patient Instructions My [facility], Oseltamivir capsules Additional Instructions Diagnosis: Influenza A Tamiflu 75 mg twice daily for 5 days. Tylenol 650 mg every 6 hours as needed for pain or fever. Continue prednisone as prescribed. Albuterol 2 puffs every 4 hours as needed for wheezing or cough. Return to the ER for worsening of symptoms or any medical concerns.
[2017-08-28 10:44] LABS: BASO % 0.2 %; BASO ABS # 0.02 K/uL (0-0.2); EOS % 0.8 %; EOS ABS # 0.07 K/uL (0-0.5); HEMATOCRIT 38.1 % (37-47); HEMOGLOBIN 12.6 g/dL (12.0-16.0); IG# 0.03 K/uL (0.00-0.02); LYMPH % 7.7 %; LYMPH ABS # 0.66 K/uL (1.2-3.4); MEAN CELL VOLUME 93.8 fL (80-100); MEAN CORPUSCULAR HGB CONC 33.1 g/dl (32-36); MEAN PLATELET VOLUME 9.6 fL (7.4-10.4); MONO % 5.7 %; MONO ABS # 0.49 K/uL (0.11-0.59); NEUT % 85.2 %; NEUT ABS # 7.28 K/uL (1.4-6.5); PLATELET COUNT 215 K/uL (130-400); RED CELL DISTRIBUTION WIDTH CV 14.4 % (11.5-14.5); RED CELL DISTRIBUTION WIDTH SD 48.7 fL (36.4-46.3); WHITE BLOOD COUNT 8.55 K/uL (4.8-10.8)
[2017-08-28 11:02] LABS: BLOOD UREA NITROGEN 15 mg/dl (7-18); CREATININE 0.79 mg/dl (0.60-1.20); GLUCOSE 115 mg/dl (70-99)
[2017-08-28 11:03] LABS: ALBUMIN 3.6 gm/dl (3.4-5.0); ALT/SGPT 62 U/L (12-78); AST/SGOT 32 U/L (15-37); CALCIUM 8.6 mg/dl (8.5-10.1); CARBON DIOXIDE 27 mmol/L (21-32); POTASSIUM 3.6 mmol/L (3.5-5.1); SODIUM 138 mmol/L (136-145)
[2017-08-28 11:05] LABS: ALKALINE PHOSPHATASE 134 U/L (45-117); TOTAL PROTEIN 7.6 gm/dl (6.4-8.2)
[2017-08-28] MEDS ORDERED: PRED20TA PO (11:05)
--- NOTE | 2017-08-28 11:07 | DIAGNOSTIC IMAGING REPORT ---
CHEST ONE VIEW PORTABLE CLINICAL HISTORY: cough, wheezing dyspnea COMPARISON STUDY: 12/14/2016 FINDINGS: Lungs are clear. Mild stable cardiomegaly. Stable postoperative changes thoracolumbar spine. IMPRESSION: No acute process. The above report was generated using voice recognition software. It may contain grammatical, syntax or spelling errors. Electronically signed by: Domo Mena M.D. 08/28/2017 11:06 AM Dictated Date/Time: 08/28/2017 11:05 AM
[2017-08-28 11:34] LABS: INFLUENZA B ANTIGEN Neg for Influ B (NEG)
[2017-08-28] MEDS ORDERED: ACETAMINOPHEN 325 MG TAB PO STA (11:42)
[2017-08-28] MEDS ORDERED: OSEL75CA12 PO (13:20)
[2017-08-28 13:33] VITALS: BP 191/95; PULSE 119; O2SAT 93
== END 2017-08-28 13:34 | disposition home or self-care (01) ==
LOC: C.EDB 09:34 → C.EDC 13:34
DX: J11.1 Influenza due to unidentified influenza virus with other respiratory manifestations (principal); I10 Essential (primary) hypertension; Z82.49 Family history of ischemic heart disease and other diseases of the circulatory system